=== PATIENT | female | born 1955 | race Caucasian/White ===

== ENCOUNTER → 2019-01-22 | Outpatient (CLI) | payer OTHER ==
[~2019-01-22] MED LIST: ACET325; Amitiza8 MCG; Benadryl 50 mg50 MG PO; CALCAVITDA PO; CARB200; CHOL10002; DOCU100; FOLI1; HYDR.5TC; Hair, Skin & N1 EACH; KEPPRA250 MG; LEVSOD100; Lacri-Lube S.O3.5 GM; MIRALAX119 GM; MIRT15ST; Milk Of Ma400 MG/5 M; PHENY100ER; Triamcinolone A15 GM TOP; VALS80; VITAMIN B122500 MCG
[2019-01-23 13:18] LABS: Stool Occult Bld Immuno 1 Negative (NEGATIVE)
== END ==
LOC: LAB SHORT 09:00 → LAB 09:00
PROVIDERS: Nurse Practitioner Family
DX: Z12.11 Encounter for screening for malignant neoplasm of colon (principal)
CPT/HCPCS: G0328

== ENCOUNTER 2020-08-27 11:22 | Emergency (ER) | payer OTHER ==
[~2020-08-27] VITALS: Ht 152.4 cm; Wt 79.6 kg
[2020-08-27] MEDS ORDERED: NAPR500 PO (12:38)
[2020-09-05] MEDS ORDERED: Fleet Enema132 ML PR (05:38)
[2020-09-05] MEDS ORDERED: CEFP200 PO (05:38)
[2020-09-05] MEDS ORDERED: Colace250 MG PO (05:39)
== END 2020-08-27 13:08 | disposition home or self-care (01) ==
LOC: ER 11:22
DX: M79.604 Pain in right leg (principal); Z79.899 Other long term (current) drug therapy
CPT/HCPCS: 73502; 73560-RT; 99283-25; A9270

== ENCOUNTER 2020-09-05 22:57 | Emergency (ER) | payer OTHER ==
[~2020-09-05] VITALS: Ht 152.4 cm; Wt 77.1 kg
[~2020-09-05 22:57] MED LIST changes: +CEFP200 PO; +Colace250 MG PO; +Fleet Enema132 ML PR; +NAPR500 PO
[2020-09-06 01:33] LABS: BASOPHILS ABSOLUTE AUTO 0.08 K/mm3 (0.00-0.23); BASOPHILS PERCENT AUTO 1 % (0-2); EOSINOPHILS ABSOLUTE AUTO 0.32 K/mm3 (0.00-0.68); EOSINOPHILS PERCENT AUTO 2 % (0-6); Hematocrit 38.5 % (33.0-51.0); Hemoglobin 12.9 g/dL (11.5-16.0); IMMATURE GRAN ABSOLUTE AUTO 0.33 K/mm3 (0.00-0.10); IMMATURE GRAN PERCENT AUTO 2 % (0-1); LYMPHOCYTES PERCENT AUTO 13 % (21-46); MONOCYTES ABSOLUTE AUTO 1.39 K/mm3 (0.16-1.47); MONOCYTES PERCENT AUTO 9 % (4-13); Mean Corpuscular HGB 31.2 pg (26.0-34.0); Mean Corpuscular HGB Conc 33.5 g/dL (31.5-36.5); Mean Corpuscular Volume 93 fL (80-100); Mean Platelet Volume 8.8 fL (9.1-12.4); NEUTROPHILS ABSOLUTE AUTO 11.83 K/mm3 (1.96-9.15); NEUTROPHILS PERCENT AUTO 74 % (41-73); Platelet Count 525 K/mm3 (150-400); RDW Coefficient Variation 12.6 % (11.7-14.2); RDW Standard Deviation 43.1 fL (35.1-46.3); Red Blood Cell Count 4.14 M/mm3 (3.80-5.20); White Blood Cell Count 15.95 K/mm3 (4.00-11.30)
[2020-09-06 01:40] LABS: Alanine Aminotransfer (ALT/SGP 25 U/L (12-78); Albumin, Blood 2.7 g/dL (3.4-5.0); Albumin/Globulin Ratio 0.5 (0.8-1.8); Alk Phos 120 U/L (50-136); Anion Gap 3 mmol/L (6-16); Aspartate Aminotrans (AST/SGOT 20 U/L (12-37); Bilirubin, Total 0.2 mg/dL (0.1-1.0); Blood Urea Nitrogen 11 mg/dL (8-24); CO2, Blood 30 mmol/L (21-32); Calcium, Blood 8.9 mg/dL (8.5-10.1); Chloride, Blood 97 mmol/L (98-108); Creatinine, Blood 0.58 mg/dL (0.40-1.00); Globulin, Blood 5.3 g/dL (2.2-4.0); Glomerular Filtration Rate >60 (60-); Glucose, Blood 163 mg/dL (70-99); Potassium, Blood 4.3 mmol/L (3.5-5.5); Sodium, Blood 130 mmol/L (136-145)
== END 2020-09-06 02:17 | disposition home or self-care (01) ==
LOC: ER 22:57
PROVIDERS: Emergency Medicine
DX: Z00.00 Encounter for general adult medical examination without abnormal findings (principal); I10 Essential (primary) hypertension; Z79.899 Other long term (current) drug therapy
CPT/HCPCS: 36415; 80053; 85025; 99283; J2543; J3370; J7050

== ENCOUNTER 2022-03-13 16:18 | Emergency (ER) | payer OTHER ==
[~2022-03-13] VITALS: Ht 162.6 cm; Wt 75.8 kg
[2022-03-13 19:37] LABS: Source, Urine Straight Cath
[2022-03-13 19:45] LABS: Appearance, Urine Cloudy (Clear); Bilirubin, Urine Neg (Neg); Blood, Urine 5+ (Neg); Color, Urine Yellow (P-Yellow); Glucose Qualitative, Urine Neg (Neg); Ketones, Urine Neg (Neg); Leukocyte Esterase, Urine 1+ (Neg); Nitrite, Urine Neg (Neg); Protein, Urine 1+ (Neg); Urobilinogen, Urine NORM (Normal); pH, Urine 6.5 (5.0-8.0)
[2022-03-13 19:52] LABS: Bacteria Many /hpf; Red Blood Cells, Urine 25-50 /hpf (0-2); Squamous Epithelial Cells Many /hpf (Few)
[2022-03-13 21:35] LABS: BASOPHILS ABSOLUTE AUTO 0.06 K/mm3 (0.00-0.23); BASOPHILS PERCENT AUTO 1 % (0-2); EOSINOPHILS ABSOLUTE AUTO 0.39 K/mm3 (0.00-0.68); EOSINOPHILS PERCENT AUTO 5 % (0-6); Hemoglobin 13.7 g/dL (11.5-16.0); IMMATURE GRAN ABSOLUTE AUTO 0.02 K/mm3 (0.00-0.10); IMMATURE GRAN PERCENT AUTO 0 % (0-1); LYMPHOCYTES ABSOLUTE AUTO 3.78 K/mm3 (0.84-5.20); LYMPHOCYTES PERCENT AUTO 45 % (21-46); MONOCYTES ABSOLUTE AUTO 0.54 K/mm3 (0.16-1.47); MONOCYTES PERCENT AUTO 7 % (4-13); Mean Corpuscular HGB 31.1 pg (26.0-34.0); Mean Corpuscular HGB Conc 33.4 g/dL (31.5-36.5); Mean Corpuscular Volume 93 fL (80-100); Mean Platelet Volume 9.4 fL (9.1-12.4); NEUTROPHILS ABSOLUTE AUTO 3.53 K/mm3 (1.96-9.15); NEUTROPHILS PERCENT AUTO 43 % (41-73); Platelet Count 314 K/mm3 (150-400); RDW Coefficient Variation 12.9 % (11.7-14.2); RDW Standard Deviation 44.7 fL (35.1-46.3); White Blood Cell Count 8.32 K/mm3 (4.00-11.30)
[2022-03-13 21:37] LABS: Albumin, Blood 3.5 g/dL (3.4-5.0); Bilirubin, Total 0.3 mg/dL (0.1-1.0); Calcium, Blood 9.1 mg/dL (8.5-10.1); Creatinine, Blood 0.82 mg/dL (0.40-1.00); Globulin, Blood 3.5 g/dL (2.2-4.0); Potassium, Blood 4.4 mmol/L (3.5-5.5)
[2022-03-13] MEDS ORDERED: CEFD300 PO (22:23)
== END 2022-03-13 23:02 | disposition home or self-care (01) ==
LOC: ER 16:18
PROVIDERS: Student in an Organized Health Care Education/Training Program
DX: R45.1 Restlessness and agitation (principal); I10 Essential (primary) hypertension; Z79.899 Other long term (current) drug therapy
CPT/HCPCS: 71045; 80053; 81001; 85025; 87086; 93005; 93010; A9270

== ENCOUNTER 2022-03-15 14:24 | Emergency (ER) | payer OTHER ==
[~2022-03-15] VITALS: Ht 162.6 cm; Wt 68.0 kg
[~2022-03-15 14:24] MED LIST changes: +CEFD300 PO
[2022-03-15] MEDS ORDERED: Neurontin 300300 MG PO (16:20)
== END 2022-03-15 18:45 | disposition home or self-care (01) ==
LOC: ER 14:24
DX: G89.29 Other chronic pain (principal); M54.9 Dorsalgia, unspecified; M25.552 Pain in left hip; G31.84 Mild cognitive impairment of uncertain or unknown etiology; I10 Essential (primary) hypertension; G40.909 Epilepsy, unspecified, not intractable, without status epilepticus; Z79.899 Other long term (current) drug therapy
CPT/HCPCS: 72020; 73502; A9270

== ENCOUNTER 2022-03-18 12:39 | Emergency (ER) | payer OTHER ==
[~2022-03-18] VITALS: Ht 152.4 cm; Wt 68.0 kg
[~2022-03-18 12:39] MED LIST changes: +Neurontin 300300 MG PO
[2022-03-18 20:29] LABS: Hematocrit 46.1 % (33.0-51.0); Hemoglobin 15.5 g/dL (11.5-16.0); Mean Corpuscular HGB 30.9 pg (26.0-34.0); Mean Corpuscular HGB Conc 33.6 g/dL (31.5-36.5); Mean Corpuscular Volume 92 fL (80-100); RDW Coefficient Variation 13.1 % (11.7-14.2); Red Blood Cell Count 5.01 M/mm3 (3.80-5.20); White Blood Cell Count 12.05 K/mm3 (4.00-11.30)
[2022-03-18 20:33] LABS: Bilirubin, Total 0.4 mg/dL (0.1-1.0); Bun/Creatinine Ratio 15.1 (12.0-20.0); Calcium, Blood 9.8 mg/dL (8.5-10.1); Creatinine, Blood 0.86 mg/dL (0.40-1.00); Globulin, Blood 4.1 g/dL (2.2-4.0); Potassium, Blood 4.5 mmol/L (3.5-5.5); Total Protein, Blood 8.1 g/dL (6.4-8.2)
[2022-03-18 20:46] LABS: Mean Platelet Volume 9.3 fL (9.1-12.4); Platelet Count 354 K/mm3 (150-400)
[2022-03-18 20:48] LABS: BASOPHILS PERCENT MAN 0 % (0-2); EOSINOPHILS ABSOLUTE MAN 0.24 K/mm3 (0.00-0.68); EOSINOPHILS PERCENT MAN 2 % (0-6); LYMPHOCYTES % ATYPICAL MANUAL 1 % (0-0); LYMPHOCYTES PERCENT MAN 48 % (21-46); MONOCYTES ABSOLUTE MAN 0.48 K/mm3 (0.16-1.47); MONOCYTES PERCENT MAN 4 % (4-13); NEUTROPHILS ABSOLUTE MAN 5.42 K/mm3 (1.96-9.15); SEG NEUTROPHILS PERCENT MAN 45 % (41-73); TOTAL CELLS COUNTED 100
[2022-03-18] MEDS ORDERED: MIRALAX11910 PO (23:18)
[2022-03-18] MEDS ORDERED: Kristalose20 GM PO (23:18)
== END 2022-03-19 00:20 | disposition home or self-care (01) ==
LOC: ER 12:39
PROVIDERS: Emergency Medicine
DX: K59.00 Constipation, unspecified (principal); G31.84 Mild cognitive impairment of uncertain or unknown etiology; I10 Essential (primary) hypertension; Z79.899 Other long term (current) drug therapy; Z79.890 Hormone replacement therapy
CPT/HCPCS: 36415; 74018; 74177; 80053; 85025; A9270; J1170; Q9967

== ENCOUNTER 2022-03-20 20:07 | Emergency (ER) | payer OTHER ==
[~2022-03-20] VITALS: Ht 147.3 cm; Wt 79.4 kg
[~2022-03-20 20:07] MED LIST changes: +Kristalose20 GM PO; +MIRALAX11910 PO
[2022-03-20 21:59] LABS: BASOPHILS ABSOLUTE AUTO 0.06 K/mm3 (0.00-0.23); BASOPHILS PERCENT AUTO 1 % (0-2); EOSINOPHILS PERCENT AUTO 5 % (0-6); Hematocrit 41.1 % (33.0-51.0); Hemoglobin 13.7 g/dL (11.5-16.0); IMMATURE GRAN ABSOLUTE AUTO 0.02 K/mm3 (0.00-0.10); IMMATURE GRAN PERCENT AUTO 0 % (0-1); LYMPHOCYTES ABSOLUTE AUTO 4.15 K/mm3 (0.84-5.20); LYMPHOCYTES PERCENT AUTO 50 % (21-46); MONOCYTES ABSOLUTE AUTO 0.82 K/mm3 (0.16-1.47); MONOCYTES PERCENT AUTO 10 % (4-13); Mean Corpuscular HGB 31.1 pg (26.0-34.0); Mean Corpuscular HGB Conc 33.3 g/dL (31.5-36.5); Mean Corpuscular Volume 93 fL (80-100); Mean Platelet Volume 9.5 fL (9.1-12.4); NEUTROPHILS ABSOLUTE AUTO 2.87 K/mm3 (1.96-9.15); NEUTROPHILS PERCENT AUTO 35 % (41-73); Platelet Count 317 K/mm3 (150-400); RDW Coefficient Variation 13.1 % (11.7-14.2); RDW Standard Deviation 44.9 fL (35.1-46.3); Red Blood Cell Count 4.41 M/mm3 (3.80-5.20); White Blood Cell Count 8.32 K/mm3 (4.00-11.30)
[2022-03-20 22:48] LABS: Albumin, Blood 3.5 g/dL (3.4-5.0); Albumin/Globulin Ratio 0.9 (0.8-1.8); Bilirubin, Total 0.3 mg/dL (0.1-1.0); Bun/Creatinine Ratio 12.6 (12.0-20.0); Calcium, Blood 9.1 mg/dL (8.5-10.1); Creatinine, Blood 0.95 mg/dL (0.40-1.00); Globulin, Blood 3.8 g/dL (2.2-4.0); Potassium, Blood 4.5 mmol/L (3.5-5.5); Total Protein, Blood 7.3 g/dL (6.4-8.2)
[2022-03-21] MEDS ORDERED: MIRALAX17 GM PO (01:06)
== END 2022-03-21 03:04 | disposition home or self-care (01) ==
LOC: ER 20:07
PROVIDERS: Student in an Organized Health Care Education/Training Program
DX: K52.9 Noninfective gastroenteritis and colitis, unspecified (principal); I10 Essential (primary) hypertension; Z79.890 Hormone replacement therapy; Z79.899 Other long term (current) drug therapy
CPT/HCPCS: 36415; 73502; 74177; 80053; 85025; J1170; J2060; J7030; Q9967

== ENCOUNTER 2022-06-19 19:30 | Observation (INO) | payer OTHER ==
[~2022-06-19] VITALS: Ht 162.6 cm; Wt 71.7 kg
[~2022-06-19 19:30] MED LIST changes: -ACET325; +ACET325 PO; -CALCAVITDA PO; -KEPPRA250 MG; +KEPPRA250 MG PO; -LEVSOD100; +LEVSOD100 PO; +MIRALAX17 GM PO; +OYSTER SHELL 51 EAC2 PO
[2022-06-19 23:16] LABS: Albumin, Blood 3.9 g/dL (3.4-5.0); Bilirubin, Total 0.4 mg/dL (0.1-1.0); Bun/Creatinine Ratio 13.3 (12.0-20.0); Calcium, Blood 10.1 mg/dL (8.5-10.1); Creatinine, Blood 0.83 mg/dL (0.40-1.00); Globulin, Blood 3.8 g/dL (2.2-4.0); Potassium, Blood 3.9 mmol/L (3.5-5.5); Total Protein, Blood 7.7 g/dL (6.4-8.2)
[2022-06-19 23:50] LABS: BASOPHILS PERCENT AUTO 1 % (0-2); EOSINOPHILS ABSOLUTE AUTO 0.62 K/mm3 (0.00-0.68); EOSINOPHILS PERCENT AUTO 8 % (0-6); Hematocrit 43.6 % (33.0-51.0); Hemoglobin 14.4 g/dL (11.5-16.0); IMMATURE GRAN ABSOLUTE AUTO 0.12 K/mm3 (0.00-0.10); IMMATURE GRAN PERCENT AUTO 2 % (0-1); LYMPHOCYTES ABSOLUTE AUTO 3.38 K/mm3 (0.84-5.20); LYMPHOCYTES PERCENT AUTO 42 % (21-46); MONOCYTES ABSOLUTE AUTO 0.65 K/mm3 (0.16-1.47); MONOCYTES PERCENT AUTO 8 % (4-13); Mean Corpuscular Volume 94 fL (80-100); Mean Platelet Volume 9.3 fL (9.1-12.4); NEUTROPHILS ABSOLUTE AUTO 3.24 K/mm3 (1.96-9.15); NEUTROPHILS PERCENT AUTO 40 % (41-73); Platelet Count 257 K/mm3 (150-400); RDW Coefficient Variation 13.1 % (11.7-14.2); RDW Standard Deviation 44.6 fL (35.1-46.3); Red Blood Cell Count 4.64 M/mm3 (3.80-5.20); White Blood Cell Count 8.11 K/mm3 (4.00-11.30)
[2022-06-20 08:11] VITALS: BP 102/62
[2022-06-20 19:53] VITALS: BP 157/93
[2022-06-21 05:05] VITALS: BP 144/106
[2022-06-21 08:17] VITALS: BP 149/104
[2022-06-21 09:19] LABS: BASOPHILS ABSOLUTE AUTO 0.03 K/mm3 (0.00-0.23); BASOPHILS PERCENT AUTO 0 % (0-2); EOSINOPHILS ABSOLUTE AUTO 0.19 K/mm3 (0.00-0.68); EOSINOPHILS PERCENT AUTO 3 % (0-6); Hematocrit 36.2 % (33.0-51.0); Hemoglobin 11.8 g/dL (11.5-16.0); IMMATURE GRAN ABSOLUTE AUTO 0.02 K/mm3 (0.00-0.10); IMMATURE GRAN PERCENT AUTO 0 % (0-1); LYMPHOCYTES ABSOLUTE AUTO 1.49 K/mm3 (0.84-5.20); LYMPHOCYTES PERCENT AUTO 21 % (21-46); MONOCYTES ABSOLUTE AUTO 0.43 K/mm3 (0.16-1.47); MONOCYTES PERCENT AUTO 6 % (4-13); Mean Corpuscular HGB 31.1 pg (26.0-34.0); Mean Corpuscular HGB Conc 32.6 g/dL (31.5-36.5); Mean Corpuscular Volume 96 fL (80-100); Mean Platelet Volume 9.5 fL (9.1-12.4); NEUTROPHILS PERCENT AUTO 69 % (41-73); Platelet Count 271 K/mm3 (150-400); RDW Coefficient Variation 13.2 % (11.7-14.2); RDW Standard Deviation 46.5 fL (35.1-46.3); Red Blood Cell Count 3.79 M/mm3 (3.80-5.20); White Blood Cell Count 7.06 K/mm3 (4.00-11.30)
[2022-06-21 09:33] LABS: Albumin, Blood 3.5 g/dL (3.4-5.0); Albumin/Globulin Ratio 0.9 (0.8-1.8); Bilirubin, Total 0.3 mg/dL (0.1-1.0); Bun/Creatinine Ratio 14.8 (12.0-20.0); Calcium, Blood 8.9 mg/dL (8.5-10.1); Creatinine, Blood 0.81 mg/dL (0.40-1.00); Globulin, Blood 3.7 g/dL (2.2-4.0); Potassium, Blood 4.3 mmol/L (3.5-5.5); Total Protein, Blood 7.2 g/dL (6.4-8.2)
[2022-06-21 15:31] VITALS: BP 137/75
[2022-06-21] MEDS ORDERED: GABA300 PO (15:34)
[2022-06-21] MEDS ORDERED: THERA-D2000 UNIT PO (15:45)
== END 2022-06-21 16:23 | disposition home or self-care (01) ==
LOC: ER 19:30 → MEDS 19:32 → ERHOLD 06-20 03:35 → MEDS 06-20 03:35 → ER 06-20 03:35 → ERHOLD 06-20 03:36 → ER 06-20 03:36 → MEDS 06-20 03:36 → ERHOLD 06-20 04:25 → MEDS 06-20 07:44 → ENPENDDIS 06-21 13:15 → MEDS 06-21 16:23
PROVIDERS: Emergency Medicine; Internal Medicine; ADMIT Internal Medicine
DX: K63.89 Other specified diseases of intestine (principal); I95.9 Hypotension, unspecified; S91.209A Unspecified open wound of unspecified toe(s) with damage to nail, initial encounter; X58.XXXA Exposure to other specified factors, initial encounter; I10 Essential (primary) hypertension; F89 Unspecified disorder of psychological development; H54.7 Unspecified visual loss; E03.9 Hypothyroidism, unspecified; G40.909 Epilepsy, unspecified, not intractable, without status epilepticus; K58.9 Irritable bowel syndrome, unspecified; Z79.899 Other long term (current) drug therapy
CPT/HCPCS: 36415; 74177; 80053; 83690; 85025; 94762; 96361; 96374-59; 96375; 96376; 99285-25; G0378; J1170; J1953; J2060; J2405; J7030; Q9967

== ENCOUNTER 2022-06-27 17:24 | Emergency (ER) | payer OTHER ==
[~2022-06-27] VITALS: Ht 147.3 cm; Wt 68.0 kg
[~2022-06-27 17:24] MED LIST changes: +GABA300 PO; +THERA-D2000 UNIT PO
[2022-06-27] MEDS ORDERED: CLONAZEPAM1 MG PO (19:06)
[2022-06-27] MEDS ORDERED: BANOPHEN50 M1 PO (19:07)
[2022-06-27 20:59] LABS: BASOPHILS ABSOLUTE AUTO 0.07 K/mm3 (0.00-0.23); BASOPHILS PERCENT AUTO 1 % (0-2); EOSINOPHILS ABSOLUTE AUTO 0.72 K/mm3 (0.00-0.68); EOSINOPHILS PERCENT AUTO 9 % (0-6); Hematocrit 40.1 % (33.0-51.0); Hemoglobin 13.1 g/dL (11.5-16.0); IMMATURE GRAN ABSOLUTE AUTO 0.02 K/mm3 (0.00-0.10); IMMATURE GRAN PERCENT AUTO 0 % (0-1); LYMPHOCYTES ABSOLUTE AUTO 2.78 K/mm3 (0.84-5.20); LYMPHOCYTES PERCENT AUTO 34 % (21-46); MONOCYTES ABSOLUTE AUTO 0.73 K/mm3 (0.16-1.47); MONOCYTES PERCENT AUTO 9 % (4-13); Mean Corpuscular HGB Conc 32.7 g/dL (31.5-36.5); Mean Corpuscular Volume 95 fL (80-100); Mean Platelet Volume 9.5 fL (9.1-12.4); NEUTROPHILS ABSOLUTE AUTO 3.81 K/mm3 (1.96-9.15); NEUTROPHILS PERCENT AUTO 47 % (41-73); Platelet Count 354 K/mm3 (150-400); RDW Standard Deviation 48.4 fL (35.1-46.3); Red Blood Cell Count 4.23 M/mm3 (3.80-5.20); White Blood Cell Count 8.13 K/mm3 (4.00-11.30)
[2022-06-27 21:21] LABS: Albumin, Blood 3.8 g/dL (3.4-5.0); Bilirubin, Total 0.3 mg/dL (0.1-1.0); Creatinine, Blood 0.86 mg/dL (0.40-1.00); Globulin, Blood 3.9 g/dL (2.2-4.0); Potassium, Blood 4.9 mmol/L (3.5-5.5); Total Protein, Blood 7.7 g/dL (6.4-8.2)
[2022-06-27] MEDS ORDERED: HYDR1TAB94 PO (22:22)
[2022-06-28] MEDS ORDERED: Keflex500 MG PO (18:41)
== END 2022-06-28 | disposition home or self-care (01) ==
LOC: ER 17:24
PROVIDERS: Emergency Medicine
DX: S79.911A Unspecified injury of right hip, initial encounter (principal); S30.811A Abrasion of abdominal wall, initial encounter; S60.512A Abrasion of left hand, initial encounter; S60.511A Abrasion of right hand, initial encounter; S80.812A Abrasion, left lower leg, initial encounter; S80.811A Abrasion, right lower leg, initial encounter; G40.909 Epilepsy, unspecified, not intractable, without status epilepticus; I10 Essential (primary) hypertension; Z79.899 Other long term (current) drug therapy; X58.XXXA Exposure to other specified factors, initial encounter
CPT/HCPCS: 36415; 74177; 80053; 83605; 83690; 85025; 96372-59; 96374-59; 99284-25; A9270; J1790; J2060; Q9967

== ENCOUNTER 2022-06-28 14:06 | Emergency (ER) | payer OTHER ==
[~2022-06-28] VITALS: Ht 157.5 cm; Wt 90.7 kg
[~2022-06-28 14:06] MED LIST changes: +BANOPHEN50 M1 PO; +CLONAZEPAM1 MG PO; +HYDR1TAB94 PO
[2022-06-28] MEDS ORDERED: Keflex500 MG PO (18:41)
== END 2022-06-28 19:05 | disposition home or self-care (01) ==
LOC: ER 14:06
DX: L03.113 Cellulitis of right upper limb (principal); Z79.899 Other long term (current) drug therapy; G40.909 Epilepsy, unspecified, not intractable, without status epilepticus; I10 Essential (primary) hypertension; M19.90 Unspecified osteoarthritis, unspecified site
CPT/HCPCS: 99283; A9270

== ENCOUNTER 2022-10-22 11:51 | Day surgery (SDC) | payer OTHER ==
[~2022-10-22] VITALS: Ht 152.4 cm; Wt 72.7 kg
[~2022-10-22 11:51] MED LIST changes: +Keflex500 MG PO
[2022-10-22] MEDS ORDERED: LOSARTAN POTASS50 MG PO (12:37)
[2022-10-22 12:57] VITALS: BP 103/75
--- NOTE | 2022-10-22 15:09 | NUR ---
10/22/22 1509 SINAI COOK PT UNWILLING TO ALLOW VS ASSESSMENTS POSTOP: SEMICOMBATIVE.
== END 2022-10-22 15:08 | disposition home or self-care (01) ==
LOC: ORSCSDS 11:51
DX: R93.3 Abnormal findings on diagnostic imaging of other parts of digestive tract (principal); R19.4 Change in bowel habit; D12.0 Benign neoplasm of cecum; K63.5 Polyp of colon; E03.9 Hypothyroidism, unspecified; E78.5 Hyperlipidemia, unspecified; G40.909 Epilepsy, unspecified, not intractable, without status epilepticus; Z79.899 Other long term (current) drug therapy
CPT/HCPCS: 88305; J2371; J2704; J7120

== ENCOUNTER 2022-12-26 17:48 | Emergency (ER) | payer OTHER ==
[~2022-12-26] VITALS: Ht 152.4 cm; Wt 74.8 kg
[~2022-12-26 17:48] MED LIST changes: +LOSARTAN POTASS50 MG PO
[2022-12-26 18:40] LABS: BASOPHILS ABSOLUTE AUTO 0.05 K/mm3 (0.00-0.23); BASOPHILS PERCENT AUTO 0 % (0-2); EOSINOPHILS ABSOLUTE AUTO 0.38 K/mm3 (0.00-0.68); EOSINOPHILS PERCENT AUTO 3 % (0-6); Hematocrit 42.3 % (33.0-51.0); IMMATURE GRAN ABSOLUTE AUTO 0.03 K/mm3 (0.00-0.10); IMMATURE GRAN PERCENT AUTO 0 % (0-1); LYMPHOCYTES ABSOLUTE AUTO 2.51 K/mm3 (0.84-5.20); LYMPHOCYTES PERCENT AUTO 20 % (21-46); MONOCYTES ABSOLUTE AUTO 1.09 K/mm3 (0.16-1.47); MONOCYTES PERCENT AUTO 9 % (4-13); Mean Corpuscular HGB 31.2 pg (26.0-34.0); Mean Corpuscular HGB Conc 33.1 g/dL (31.5-36.5); Mean Corpuscular Volume 94 fL (80-100); Mean Platelet Volume 9.3 fL (9.1-12.4); NEUTROPHILS ABSOLUTE AUTO 8.31 K/mm3 (1.96-9.15); NEUTROPHILS PERCENT AUTO 67 % (41-73); Platelet Count 314 K/mm3 (150-400); RDW Coefficient Variation 13.3 % (11.7-14.2); RDW Standard Deviation 45.9 fL (35.1-46.3); Red Blood Cell Count 4.49 M/mm3 (3.80-5.20); White Blood Cell Count 12.37 K/mm3 (4.00-11.30)
[2022-12-26 18:59] LABS: Albumin/Globulin Ratio 0.8 (0.8-1.8); Bilirubin, Total 0.4 mg/dL (0.1-1.0); Bun/Creatinine Ratio 29.6 (12.0-20.0); Calcium, Blood 10.2 mg/dL (8.5-10.1); Creatinine, Blood 0.71 mg/dL (0.40-1.00)
[2022-12-27] MEDS ORDERED: NYSTATIN100000 U13 PO (01:12)
[2022-12-27 01:45] VITALS: BP 135/119
== END 2022-12-27 01:54 | disposition home or self-care (01) ==
LOC: ER 17:48
PROVIDERS: Emergency Medicine
DX: B37.0 Candidal stomatitis (principal); E86.0 Dehydration; I10 Essential (primary) hypertension; G40.909 Epilepsy, unspecified, not intractable, without status epilepticus; Z79.899 Other long term (current) drug therapy
CPT/HCPCS: 80053; 85025; 96361; 96374; 96375; 99284-25; A9270; J1100; J1953; J2060; J7120

== ENCOUNTER → 2023-08-21 | Outpatient (CLI) | payer OTHER ==
[~2023-08-21] MED LIST changes: +NYSTATIN100000 U13 PO
[2023-08-22 13:51] LABS: Stool Occult Blood Guaiac 1 Neg (Neg)
== END | disposition home or self-care (01) ==
LOC: LAB SHORT 14:05 → LAB 14:05
PROVIDERS: Family Medicine
DX: R19.5 Other fecal abnormalities (principal)
CPT/HCPCS: 82272

== ENCOUNTER 2024-08-25 09:20 | Day surgery (SDC) | payer OTHER ==
[2024-08-25] VITALS (11 sets, daily range): BP systolic 80–125; BP diastolic 53–79
[~2024-08-25] VITALS: Ht 149.9 cm; Wt 83.3 kg
[~2024-08-25 09:20] MED LIST changes: +B-121000 MC4 PO; +CALCIUM 500-VI1 EAC4 PO; +DIAZ5 PO; +Dexamethasone Sod Phos 10 MG/ML 1ML VIAL ONE; +FOLI1 PO; +FentaNYL Citrate 50 MCG/ML 2 ML Injection ONE; +Glycopyrrolate 0.2 MG/ML 5ML VIAL ONE; +HYOS.125 PO; +Ketamine HCl 100 MG / ML 5ML Vial ONE; +Ketorolac Tromethamine 30mg Vial ONE; -LEVSOD100 PO; +LEVSOD75 PO; +LINZESS290 MCG PO; +MACRODANTIN100 M1 PO; +MIRT15 PO; +Midazolam HCl 1MG / ML 2ML Vial ONE; +Ondansetron HCl 2 MG / ML 2ML Vial ONE; +POLY500 PO; +Rocuronium Bromide 10 MG/ML 5ML Injection IV ONE; +SIMETHICONE125 MG PO; +Sugammadex Sodium 200 MG/2ML SDV (100 MG/ML) ONE; +ZYRTEC10 M2 PO
[2024-08-25] MEDS ORDERED: Lactated Ringer's 1,000 ML IV SCH ×2 (09:35→10:15)
[2024-08-25] MEDS ORDERED: CeFAZolin Sodium 2,000 MG in NS 100 ML IV SCH (09:35)
[2024-08-25] MEDS ORDERED: Lidocaine HCl 1% 5 ML SYR INJ ONE (10:15)
[2024-08-25] MEDS ORDERED: Midazolam HCl 1MG / ML 2ML Vial IV ONE (10:15)
[2024-08-25] MEDS ORDERED: Midazolam HCl 1MG / ML 2ML Vial ONE ×2 (10:26→10:37)
[2024-08-25] MEDS ORDERED: propofoL 20 ML IV ONE (10:26)
--- NOTE | 2024-08-25 10:43 | NUR ---
PT PRESENTS WITH CAREGIVER. PT IS LEGALLY BLIND, MENTALLY DELAYED AND IN A WHEELCHAIR. PT WAS TRANSFERED FROM TO BED VIA [employer]. PT TOLERATED WELL. MIYA CHECKOUT SUPERVISOR SPOKE WITH PT SISTER FOR CONSENT. IV WAS PLACED WITH ASSISTANCE. MIYA GAVE PT VERSED. PT IS RELAXED AND RESTING, BIOX 97% ON RA. PT CHANGED INTO A GOWN, CAREGIVER REMAINS AT BEDSIDE.
[2024-08-25] MEDS ORDERED: Lidocaine HCl 4% 5 ML SDA ONE (11:06)
[2024-08-25] MEDS ORDERED: Bupivacaine 0.5% HCl 5 MG/ML 30MLVIAL ONE (11:07)
[2024-08-25] MEDS ORDERED: FentaNYL Citrate 50 MCG/ML 2 ML Injection ONE (11:16)
[2024-08-25] MEDS ORDERED: Rocuronium Bromide 10 MG/ML 5ML Injection IV ONE (11:17)
[2024-08-25] MEDS ORDERED: ePHEDrine Sulfate 50 MG/ML 1ML Injection ONE (11:31)
[2024-08-25] MEDS ORDERED: Sugammadex Sodium 200 MG/2ML SDV (100 MG/ML) ONE (11:43)
[2024-08-25] MEDS ORDERED: HYDROcodone 5-APAP 325 TAB PO PRN (13:15)
[2024-08-25] MEDS ORDERED: Ketorolac Tromethamine 30mg Vial ONE (13:55)
--- NOTE | 2024-08-25 15:06 | NUR ---
PT RESTLESS IN BED. PT SISTER AT BS HOLDING PTS HAND. WAITING FOR [facility] TRANSPORT TO COME AND GIVE PT FRANK SCOTTE BACK HOME.
== END 2024-08-25 23:00 | disposition home or self-care (01) ==
LOC: ORSCMMR 09:20 → ORD 10:30 → ORSCMMR 23:00
PROVIDERS: Surgery
PROC: BF031ZZ Plain Radiography of Gallbladder and Bile Ducts using Low Osmolar Contrast (ICD-10-PCS; principal; 2024-08-25 10:30)
PROC: 0FT44ZZ Resection of Gallbladder, Percutaneous Endoscopic Approach (ICD-10-PCS; principal; 2024-08-25 10:30)
DX: K80.10 Calculus of gallbladder with chronic cholecystitis without obstruction (principal); I10 Essential (primary) hypertension; E78.5 Hyperlipidemia, unspecified; E03.9 Hypothyroidism, unspecified; F84.0 Autistic disorder; F89 Unspecified disorder of psychological development; H54.8 Legal blindness, as defined in USA; Z79.899 Other long term (current) drug therapy; K76.0 Fatty (change of) liver, not elsewhere classified
CPT/HCPCS: 74300; 88304; A9270; C1729; J0690; J1100; J1885; J2003; J2250; J2405; J2704; J3010; J7120